=== PATIENT | female | born 1980 | race Caucasian/White ===

== ENCOUNTER 2016-06-28 06:05 | Outpatient (CLI) | payer OTHER ==
[2016-06-28] MEDS ORDERED: TERBUTALINE SULFATE 1 MG/ML VIAL SUB-Q ONE (06:19)
[2016-06-28] MEDS ORDERED: LACTATED RINGERS 1,000 ML IV SCH (06:19)
[2016-06-28] MEDS ORDERED: IV START KIT ONE (06:21)
[2016-06-28 06:47] VITALS: BMI 25.9
[2016-06-28 08:16] LABS: HEMATOCRIT 41.3 % (37.0-47.0); HEMOGLOBIN 13.9 gm/l (12.0-16.0); MEAN CELL VOLUME 92.6 fl (81.0-99.0); MEAN CORPUSCULAR HEMOGLOBIN 31.2 pg (27.0-31.0); MEAN CORPUSCULAR HGB CONC 33.7 g/dl (33.0-37.0); RED CELL DISTRIBUTION WIDTH 13.7 % (11.5-14.5)
--- NOTE | 2016-06-28 08:42 | PCMAN ---
OB Admission Note - History : 2 Term: 0 : 0 Abortions (S&E): 1 Livin Gestational Age (weeks): 39 Days (#/7): 2 Admit Cervical Dilation:: 1-2cm per Dr Hernandez Admit Station:: -3 Admit Presentaton:: Breech - RST Membrane Status: Intact Contractions: Yes Contraction Frequency:: mild, irregular Heart Rate:: 130 Status:: Good EFW:: 7lb Summary of Course:: Pt is a 36yo , sp 1st trimester miscarriage in 2013, now at 39w2d with a persistent breech presentation confirmed by US yesterday. Pt has been followed by Dr Hernandez since 9weeks, with no major concerns. - Labs Blood Type: O (+) positive Hct/Hgb:: 41.3%today Rubella Status: Immune GBS Status: Negative Abnormal Labs: None - Review of Systems Pt aware of occ contractions, mild. Baby is active with most movement high up above umbilicus. Pt denies other concerns. - Physical Exam Psych/Mental Status: Mood/Affect Appropriate, Judgment/Insight Intact Neurological: Alert, Oriented x 4, Normal Speech Lungs: Clear to Auscultation Bilaterally Cardiovascular: Regular Rate and Rhythm Skin: Normal Color, Warm - Problems (1) Malpresentation of fetus Qualifiers: malpresentation type: breech Fetus number: single or unspecified fetus Qualifier Code: (O32.1XX0) Maternal care for breech presentation, not applicable or unspecified Status: Acute Code: O32.9XX0 Assessment/Plan: Pt admitted this morning specifically for external version attempt. Risks and options reviewed. Consent signed.
--- NOTE | 2016-06-28 15:45 | CONS ---
CLINTON JONES [id number] DATE OF : 1980 REASON FOR CONSULTATION: This is Dr. Hernandez's patient and it is a consultation for breech presentation. HISTORY OF PRESENT ILLNESS: Clinton Jones is a 36-year-old G-2, P-0, 0-1-0 who has been followed since early in her by Dr. Hernandez. She has had regular visits throughout the and has shown a regular increase in the fundal height. She had a weight gain of 28 pounds during this , with no significant hypertension or proteinuria. The baby was thought to be in a cephalic presentation until the patient's visit yesterday when Dr. Hernandez identified that actually the baby is in a breech position. She was sent for an ultrasound yesterday evening and indeed the baby was breech, with the back to the maternal right. The legs were extended, with the feet up by the baby's face. The placenta was anterior. The fluid was measured at 9 cm. Options were discussed with the patient and a plan was rapidly made to bring her in this morning for evaluation for an external version. I reviewed Clinton's record and this has been an uncomplicated . The patient does have a history of a prior seven week spontaneous miscarriage in 2013, but no other pregnancies. She has no major medical problems and generally is very healthy. She is active and has been doing yoga, as well as other workouts during this . PAST MEDICAL HISTORY: See the record for the rest of the past medical history. FAMILY HISTORY: See the record for the rest of the family history. SOCIAL HISTORY: See the record for the rest of the social history. 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 She was hoping for a normal vaginal . She is in a stable mutually monogamous relationship. Her is present and supportive. PHYSICAL EXAMINATION: Exam on admission this morning again shows that the baby is in a breech presentation. Dr. Hernandez did a pelvic exam yesterday, which revealed the cervix to be 1-2 cm dilated, but still fairly thick, with the breech not well-engaged in the pelvis. Membranes were intact. No pelvic exam was repeated today. PLAN: I spent some time talking with Clinton and her about options for management. We do recommend caesarian section for a breech baby in this setting. The option of attempting an external version was explained, the risks and possible complications were discussed, the patient's questions were answered, and the patient and I signed the consent form together. The necessary preparations were made including placing an IV and drawing blood. Also, the operating room was available in case of emergency. After the patient had emptied her bladder she was given terbutaline 0.25 mg subcutaneously, and this was allowed to take effect. Indeed the uterus was palpably more relaxed several minutes after that injection. Dr. Hernandez was also present and assisted with the external version. I first did an ultrasound to thoroughly evaluate the position of this baby. She had her spine to the maternal right. The head was in the fundus. The placenta was noted to be anterior and left lateral. The baby's legs were tucked under the placenta deep in the left upper quadrant. With Dr. Hernandez's assistance, the breech was gently elevated above the pelvic brim and an attempt was then made to rotate this baby in a forward somersault (this would be a clockwise direction) with pressure on her head and the breech elevated out of the pelvis and towards the patient's right side. We were able to partially change the baby's position. Unfortunately, as soon as we let go she reverted back to her original position. The problem was that we could not get the head under the placenta on the left side. The baby seemed to be almost in a brace position. After several attempts at a forward roll, we then waited several minutes and took a break, and then tried a reverse roll; again however the baby would barely budge. We could not even get her into a transverse position. After seeing how this baby had minimal movement, it was decided not to attempt the external version any longer. During this entire procedure, we were checking the heart rate periodically, and always this baby's pulse was well over 120. No decelerations were noted. This patient was then placed on a monitor and watched for over an hour. The baby did show normal reactivity and a normal wake-sleep pattern after the external version attempt. I spoke with the patient and her about options at this point. I am concerned that she may labor with the baby in this breech position. One option would be to proceed directly with a primary caesarian section. On the other hand, I think it is also reasonable to wait several more days to see if this baby might turn on her own. Options were reviewed and in the end Clinton chose to set-up a date for an elective primary caesarian section on 07/04/2016. Between now and then she will continue to do various exercises to see if the baby will turn. If the baby is still breech on 07/04/2016, we will proceed with a primary caesarian section. The patient was also given the usual precautions. If she should show any signs of labor or rupture of membranes, she knows to come into the hospital directly. At that point we will first ascertain the position of the baby and then decide on a plan of action depending on presentation. Clinton understands and agrees with this plan.
== END 2016-06-28 09:30 | disposition home or self-care (01) ==
LOC: SUATTDRO → FBC 06:05 → FBCOUT 06:05
PROVIDERS: ATTEND Obstetrics & Gynecology
DX: O32.1XX0 Maternal care for breech presentation, not applicable or unspecified (principal); Z3A.39 39 weeks gestation of pregnancy; O09.513 Supervision of elderly primigravida, third trimester
CPT/HCPCS: 96372; 96360; 96361; 85027; 86901; 86850 ×3; 59412; 76815; 81002; J3105; J7120

== ENCOUNTER 2016-07-09 06:10 | Inpatient (IN) | payer OTHER ==
[2016-07-09] MEDS: LACTATED RINGERS 1,000 ML IV SCH ×4 (06:20→17:16)
[2016-07-09] MEDS ORDERED: CEFAZOLIN SODIUM 2 GRAM DUPLEX 2 G in Premix (D5W) 50 ml 1 EACH IV PRN (06:36)
[2016-07-09 06:48] LABS: HEMATOCRIT 45.4 % (37.0-47.0); HEMOGLOBIN 15.3 gm/l (12.0-16.0); MEAN CELL VOLUME 91.7 fl (81.0-99.0); MEAN CORPUSCULAR HEMOGLOBIN 30.9 pg (27.0-31.0); MEAN CORPUSCULAR HGB CONC 33.7 g/dl (33.0-37.0); RED CELL DISTRIBUTION WIDTH 13.3 % (11.5-14.5)
[2016-07-09 06:50] VITALS: BMI 25.8
[2016-07-09] MEDS ORDERED: CEFAZOLIN SODIUM 2 GRAM DUPLEX 50 ML IV ONE (06:56)
--- NOTE | 2016-07-09 07:19 | PCMAN ---
OB Admission Note - History : 2 Term: 0 : 0 Abortions (S&E): 1 Livin Gestational Age (weeks): 40 Days (#/7): 6 Admit Cervical Dilation:: 3.5 cm per dinking machine operator Cervical Effacement (%):: 90 Admit Station:: -2 Admit Presentaton:: Breech Membrane Status: Intact Labor Onset (Date): 07/09/16 Labor Onset (Time): 04:30 Contractions: Yes Contraction Frequency:: q 1-2 min Heart Rate:: 140 Status:: Good EFW:: 7lbs Summary of Course:: See pre-op H&P for c/s scheduled for 07/11/16. Clinton comes in this morning in active labor. C/S was recommended, risks/ benefits discussed, questions answered; pt agrees and consent was signed. Pt however is very definite that she does not want pre-op antibiotics; risks reviewed. - Labs GBS Status: Negative Other Labs:: All negative. - Review of Systems Recent gastro-enteritis. GI symptoms have resolved though pt is noted to be hemoconcentrated. - Physical Exam Psych/Mental Status: Mood/Affect Appropriate, Judgment/Insight Intact Neurological: Alert, Oriented x 4, Normal Speech (In active labor but talking during contractions.) HEENT: Atraumatic Lungs: Clear to Auscultation Bilaterally, Normal Air Movement Cardiovascular: Regular Rate and Rhythm Skin: Normal Color, Warm, Dry - Problems (1) Malpresentation of fetus Qualifiers: malpresentation type: breech Fetus number: single or unspecified fetus Qualifier Code: (O32.1XX0) Maternal care for breech presentation, not applicable or unspecified Status: Acute Code: O32.9XX0 Assessment/Plan: Breech in active labor. Pt agrees with immediate c/section.
[2016-07-09] MEDS ORDERED: SPINAL PROCEDURAL TRAY 1 EACH ONE (07:21)
[2016-07-09] MEDS ORDERED: BUPIVACAINE 0.75% SPINAL AMPUL 2 ML ONE (07:21)
[2016-07-09] MEDS ORDERED: MORPHINE SULFATE (DURAMORPH) 1 MG/ML 10ML AMP ONE (07:22)
[2016-07-09] MEDS ORDERED: NALBUPHINE HCL 20 MG/ML AMP IV PRN (08:00)
[2016-07-09] MEDS ORDERED: HYDROMORPHONE HCL 1 MG/ML SYRINGE IV PRN (08:00)
[2016-07-09] MEDS ORDERED: EPHEDRINE SULFATE 50 MG/ML 1ML VIAL IV PRN (08:00)
[2016-07-09] MEDS ORDERED: HYDROMORPHONE HCL 2 MG/ML SYRINGE IV PRN (08:00)
[2016-07-09] MEDS ORDERED: NALOXONE HCL 0.4 MG/ML VIAL IV PRN (08:00)
[2016-07-09] MEDS ORDERED: DIPHENHYDRAMINE HCL 50 MG/1 ML VIAL IV PRN ×2 (08:00→09:04)
[2016-07-09] MEDS ORDERED: ONDANSETRON 4 MG/2ML 2 ML VIAL IV PRN ×2 (08:00→09:04)
[2016-07-09] MEDS ORDERED: LANOLIN 50 APPLIC/7G TUBE TP PRN (09:04)
[2016-07-09] MEDS ORDERED: DIPHENHYDRAMINE HCL 25 MG CAPSULE PO PRN (09:04)
[2016-07-09] MEDS ORDERED: DIPHTH,PERTUSS(ACELL),TET VAC 0.5 ML VIAL IM V ONE (09:04)
[2016-07-09] MEDS ORDERED: OXYCODONE HCL 5 MG TABLET PO PRN (09:04)
[2016-07-09] MEDS: PRENATAL VIT/FE FUMARATE/FA 1 TABLET PO SCH (09:04)
[2016-07-09] MEDS: DOCUSATE SODIUM 100 MG CAPSULE PO SCH ×2 (09:04→21:37)
[2016-07-09] MEDS ORDERED: MEASLES,MUMPS&RUBELLA VACCINE 0.5 ML VIAL SUB-Q V ONE (09:04)
[2016-07-09] MEDS ORDERED: OXYCODONE/ACETAMINOPHEN 5/325 MG TABLET PO PRN (09:04)
--- NOTE | 2016-07-09 10:08 | PCMBPN ---
Brief Post Op Note: Date of Procedure: 07/09/16 Start Time: 07:46 Preoperative Diagnosis: 1. Breech in labor Postoperative Diagnosis: 1. Same Procedure: Primary c/section (low uterine segment transverse incision) Surgeon: Lisa Lagunas Assist:Mona Hernandez MD Anesthesia: spinal, Jero Sesay CRNA Findings: Baby girl RST, feet up by face, chubby, BT 07:56 9/9, [id number] Condition: Good Complications: None IV Fluids: 1800 mLs of LR Urine Output: 150 mLs Estimated Blood Loss: 500 mLs Tourniquet Time: N/A Specimens: N/A Implants: N/A Drains: N/A
[2016-07-09] MEDS ORDERED: IV START KIT ONE (11:38)
[2016-07-09] MEDS ORDERED: LACTATED RINGERS 1,000 ML ONE (11:38)
--- NOTE | 2016-07-09 12:53 | OP ---
DESIRAE JONES [id number] DATE OF : 1980 DATE OF SURGERY: 07/09/2106 PREPROCEDURE DIAGNOSIS: Primigravida breech in active labor. POSTPROCEDURE DIAGNOSIS: Primigravida breech in active labor. PROCEDURE PERFORMED: Primary section (lower uterine segment transverse incision). SURGEONS: Lisa Lagunas MD SEED POTATO CUTTER: Mona Hernandez MD ALUMINUM WELDER: Jero Sesay CRNA ANESTHESIA: Spinal anesthesia was used. ESTIMATED BLOOD LOSS: 500 mL. FINDINGS: A well-developed lower uterine segment, baby girl in a right sacrum transverse position. The time was 0756 hours. scores were 9 at 1 minute and 9 at 5 minutes. Weighed 9 pounds and 15 ounces. DESCRIPTION OF PROCEDURE: On the morning of 07/09/2016, Desirae Jones presented to the [facility] in early labor. She was having regular contractions that were getting rather uncomfortable. They were short, but frequent. There was definite cervical change, and by the time we did the surgery there was some bloody show. Her initial exam showed that she was 3-1/2 centimeters dilated. Membranes were intact. Options were discussed with the patient and her and it was recommended that we proceed with a primary section. The risks and possible complications were reviewed. Their questions were answered, the consent was then signed. The patient requested that we not give her any prophylactic antibiotics. I suggest giving them at least after the baby was born, but she did not want antibiotics in her breast milk if possible. After some discussion of risks, it was decided that we would honor her request, and the patient was not given any prophylactic antibiotics. After the rest of the usual preoperative preparations were completed in the triage room, and after the team was assembled and ready, Desirae was brought to the operating room and placed on the operating room table in a sitting position. The usual monitoring leads were placed. Spinal anesthesia was then administered without difficulty. Desirae was then placed in a supine position with a wedge under the right hip. heart tone monitoring showed a normal heart rate in the 130s. A Valadez catheter was placed while we were listening to the baby. The abdomen was then prepped and draped for a transverse suprapubic incision. After verifying an adequate level of anesthesia, the surgery was started. A transverse incision was made about the symphysis pubis with a first knife. This incision was carried down through the adipose layer with sharp and blunt dissection and using cautery for hemostasis. The fascia was incised the length of the incision. It was mobilized inferiorly and superiorly. The muscles were then in the midline. The peritoneum was opened vertically with just a small amount of free fluid in the peritoneal cavity. The lower uterine segment was well developed. The breech was deep in the pelvis. The visceral peritoneum was opened transversely and the bladder was mobilized inferiorly. A transverse incision was then made in the lower uterine segment and carried carefully down to the cavity. There was a moderate amount of yellow meconium stained amniotic fluid. The incision was extended a little bit with gentle traction in the cephalocaudad direction. The breech was found to be right sacrum transverse. It was gently cupped in my hand and delivered through the incision. Then with excellent fundal pressure by Dr. Dickens, the hips were gently brought down and delivered. Once the thighs were exposed, I did gently release the baby's legs by flexing the knees and bringing the feet out. This was not easy because of the size of this baby. Once the legs were delivered; however, the remainder of the baby delivered quickly. Both arms were released and the head came right out. This was a vigorous baby girl, who was perhaps a bit surprised initially. She did however have good tone and good cry. Mouth and nose were suctioned as we let the cord pulsate for at least a minute, then the cord was clamped and cut, and the baby was handed to the resuscitation nurse. Cord blood was obtained. The cord did show two arteries and one vein. The placenta was delivering almost spontaneously at this point. It was gently guided through the incision. All blood clots and debris were removed from the uterus. The uterus was then exteriorized and two clamps were placed on the uterine incision. This was closed with continuous interlocking suture of 0-Chromic. The second layer was use to imbricate the first layer. This gave excellent hemostasis. The uterus was inspected and show no abnormalities, normal tubes and ovaries. I did palpate the endometrial cavity in the fundus and there was no suggestion of any septum. The pelvis was irrigated posteriorly with warm saline. The pelvic inlet was thought to be normal. The uterus was then placed back within peritoneal cavity. The Jose retractor which had previously been placed was then removed. Lap sponge and instrument counts were reported as corrected. The uterine incision was again inspected, and there was no bleeding. The abdomen was then closed in layers as follows: Peritoneum and muscle were reapproximated in the midline with some 2-0 Vicryl suture. The fascia was closed with 0-Vicryl starting at the left angle. The adipose layer was irrigated and then closed with 2-0 plain suture. The skin was reapproximated with 4-0 Monocryl, and then Steri-Strips were placed. A bandage was placed. The patient was then cleaned up. Fundal massage showed that the uterus was firm and there was minimal bleeding. She was then transferred to her bed and her baby was snuggled back onto her chest. She was then taken to her recovery room in stable condition. TONIO/roger
[2016-07-09] MEDS: KETOROLAC TROMETHAMINE 30 MG/ML 1 ML VIAL IV PRN ×2 (14:51→21:37)
[2016-07-10] MEDS: KETOROLAC TROMETHAMINE 30 MG/ML 1 ML VIAL IV PRN (03:23)
[2016-07-10] MEDS: LACTATED RINGERS 1,000 ML IV SCH ×3 (06:28→17:26)
[2016-07-10 06:54] LABS: HEMATOCRIT 42.6 % (37.0-47.0); HEMOGLOBIN 13.9 gm/l (12.0-16.0); MEAN CELL VOLUME 93.6 fl (81.0-99.0); MEAN CORPUSCULAR HEMOGLOBIN 30.5 pg (27.0-31.0); MEAN CORPUSCULAR HGB CONC 32.6 g/dl (33.0-37.0); RED CELL DISTRIBUTION WIDTH 13.5 % (11.5-14.5)
--- NOTE | 2016-07-10 07:33 | PDOC44 ---
- Subjective Day: 1 Reports Flatus, Reports Pain Tolerable, Reports , Reports Lochia Light, Denies Nausea, Denies Vomiting, Denies Fever - Objective Temp Pulse Resp BP Pulse Ox 98.4 F 71 18 105/55 98 07/10/16 02:30 07/10/16 02:30 07/10/16 02:30 07/10/16 02:30 07/09/16 12:58 Lab Results 07/10/16 06:30 WBC 16.8 H RBC 4.55 Hgb 13.9 Hct 42.6 Plt Count 210 07/10/16 06:30 MCHC 32.6 L Current Medications Generic Name Dose Route Start Last Admin Trade Name Freq PRN Reason Stop Dose Admin Diphenhydramine HCl 25 - 50 mg 07/09/16 09:04 Benadryl PO Q6H PRN Itching (Mild/Moderate) Diphenhydramine HCl 25 - 50 mg 07/09/16 09:04 Benadryl IV Q6H PRN Itching (Severe) Diphenhydramine HCl 25 - 50 mg 07/09/16 08:00 Benadryl IV 07/10/16 08:00 Q4H PRN Itching Docusate Sodium 100 mg 07/09/16 09:04 07/09/16 21:37 Colace PO 100 mg BID BENNETT Administration Emollient Ointment 1 applic 07/09/16 09:04 Aos-H-[id number] TP PRN PRN sore nipples Ephedrine Sulfate 5 - 10 mg 07/09/16 08:00 Ephedrine Sulfate IV 07/10/16 08:00 Q5M PRN Hydromorphone HCl 0.5 - 2 mg 07/09/16 08:00 Dilaudid IV 07/10/16 08:00 Q1H PRN Pain (Breakthrough) Hydromorphone HCl 0.5 - 2 mg 07/09/16 08:00 Dilaudid IV 07/10/16 08:00 Q1H PRN Pain Lactated Ringer's 1,000 mls @ 125 mls/hr 07/09/16 09:04 07/10/16 06:28 Lactated Ringers IV Not Given .Q8H BENNETT Ibuprofen 800 mg 07/09/16 09:04 Motrin PO Q6H PRN Pain Ketorolac Tromethamine 30 mg 07/09/16 09:04 07/10/16 03:23 Toradol IV 30 mg Q6H PRN Administration Pain (Mild/Moderate) Multivi/Iron Carb/Fe Sulf/FA/Prenat 1 tab 07/09/16 09:04 07/09/16 09:04 Plus PO Not Given DAILY BENNETT Nalbuphine HCl 1 - 5 mg 07/09/16 08:00 Nubain IV 07/10/16 08:00 Q4H PRN Itching Naloxone HCl 0.2 - 0.4 mg 07/09/16 08:00 Narcan IV 07/10/16 08:00 Q5M PRN Ondansetron HCl 4 mg 07/09/16 09:04 Zofran IV Q6H PRN Nausea/Vomiting Ondansetron HCl 4 mg 07/09/16 08:00 Zofran IV 07/10/16 08:00 Q6H PRN Nausea/Vomiting Oxycodone HCl 5 - 10 mg 07/09/16 09:04 Roxicodone PO Q3H PRN Pain (Severe) Oxycodone/Acetaminophen 1 - 2 tab 07/09/16 09:04 Percocet 5/325 PO Q4H PRN Pain (Moderate) Sodium Chloride 10 ml 07/09/16 09:04 07/10/16 03:23 Normal Saline 10ml Flush IV 20 ml PRN PRN Administration IV Flush Sodium Chloride 10 ml 07/09/16 17:00 07/10/16 06:28 Normal Saline 10ml Flush IV Not Given Q8HR [facility] - Physical Exam General: Afebrile, No Acute Distress Fundus: Firm, At Umbilicus Abdomen: Normal Bowel Sounds, No Tenderness, No Distention Wound CHIEF RISK OFFICER: Dressing in Place, Dressing Clean/Dry/Intact Disposition: Stable (stable; regular postoperative care.)
[2016-07-10] MEDS: PRENATAL VIT/FE FUMARATE/FA 1 TABLET PO SCH (09:33)
[2016-07-10] MEDS: DOCUSATE SODIUM 100 MG CAPSULE PO SCH ×2 (09:37→22:26)
[2016-07-10] MEDS: IBUPROFEN 800 MG TABLET PO PRN ×3 (09:38→22:25)
[2016-07-11] MEDS: IBUPROFEN 800 MG TABLET PO PRN ×2 (05:00→11:05)
[2016-07-11] MEDS: LACTATED RINGERS 1,000 ML IV SCH ×2 (05:55→10:57)
[2016-07-11 08:29] VITALS: BP 120/59
--- NOTE | 2016-07-11 08:48 | PDOC39B ---
Hospital Course: ADMIT DATE: 07/09/16 DISCHARGE DATE: 07/11/16 ADMISSION DIAGNOSES: post dates , breech in labor PROCEDURES: Primary section (lower uterine segment transverse incision) HISTORY OF PRESENT ILLNESS: 36 year old G2 T0 L0 at 40 weeks 6 days presenting with labor. HOSPITAL COURSE: The patient was prepared for c/section. This was accomplished without delay resulting in the of Belkis Ya, 9lb 14, breech. Mother and baby have done well in period. By day of discharge the patient is ambulating, eating, voiding, and passing flatus without difficulty. Pain is controlled and lochia is appropriate. She is . - Physical Exam Vital Signs: Temp Pulse Resp BP Pulse Ox 97.8 F 70 16 120/59 98 07/11/16 08:27 07/11/16 08:27 07/11/16 08:27 07/11/16 08:27 07/09/16 12:58 General: Afebrile Psych/Mental Status: Mood/Affect Appropriate, Bonding Well Neurological: Oriented x 4, Normal Speech Lungs: Normal Air Movement Cardiovascular: Regular Rate and Rhythm Fundus: Firm, Below Umbilicus Abdomen: Normal Bowel Sounds Lochia: Light Skin: Normal Color, Warm Wound: Well Approximated - Discharge Diagnosis (1) Malpresentation of fetus Qualifiers: malpresentation type: breech Fetus number: single or unspecified fetus Qualifier Code: (O32.1XX0) Maternal care for breech presentation, not applicable or unspecified Status: Acute Assessment/Plan: Breech in active labor. Pt agrees with immediate c/section. Pt was delivered by primary section without complication. - Discharge Plan Condition: Good Disposition: Home Prescriptions: Ibuprofen [IBUPROFEN 800 MG TABLET (SHF)] 800 mg PO Q6H PRN #100 tablet PRN Reason: Pain Follow-Up: Mona Hernandez MD [Primary Care Provider] - 08/18/16 9:00 am (6 week check up ) Lisa Lagunas MD [Staff Physician] - In 7-10 days
[2016-07-11] MEDS: PRENATAL VIT/FE FUMARATE/FA 1 TABLET PO SCH (10:56)
[2016-07-11] MEDS: DOCUSATE SODIUM 100 MG CAPSULE PO SCH (10:56)
== END 2016-07-11 12:08 | disposition home or self-care (01) | DRG 766 ==
LOC: FBCOUT 06:10 → FBC 06:10 → FBCOUT 06:35
PROVIDERS: ADMIT Obstetrics & Gynecology; ATTEND Obstetrics & Gynecology
PROC: 10D00Z1 Extraction of Products of Conception, Low, Open Approach (ICD-10-PCS; principal; 2016-07-09)
DX: O32.1XX0 Maternal care for breech presentation, not applicable or unspecified (principal); O75.89 Other specified complications of labor and delivery; N64.59 Other signs and symptoms in breast; Z3A.40 40 weeks gestation of pregnancy; Z37.0 Single live birth

== ENCOUNTER 2016-07-14 13:04 | Outpatient (CLI) | payer OTHER | END 2016-07-14 13:05 | disposition home or self-care (01) | LOC: BABIESSH 13:04 | PROVIDERS: ATTEND Obstetrics & Gynecology | DX: Z39.1 Encounter for care and examination of lactating mother (principal) ==

== ENCOUNTER 2016-07-17 14:56 | Outpatient (CLI) | payer OTHER | END 2016-07-17 14:57 | disposition home or self-care (01) | LOC: BABIESSH 14:56 | PROVIDERS: ATTEND Obstetrics & Gynecology | DX: Z39.1 Encounter for care and examination of lactating mother (principal) ==

== ENCOUNTER 2016-07-20 10:53 | Outpatient (CLI) | payer OTHER | END 2016-07-20 10:54 | disposition home or self-care (01) | LOC: BABIESSH 10:53 | PROVIDERS: ATTEND Obstetrics & Gynecology | DX: Z39.1 Encounter for care and examination of lactating mother (principal) ==

== ENCOUNTER 2016-07-28 11:00 | Outpatient (CLI) | payer OTHER | END 2016-07-28 11:01 | disposition home or self-care (01) | LOC: BABIESSH 11:00 | PROVIDERS: ATTEND Family Medicine | DX: Z39.1 Encounter for care and examination of lactating mother (principal) ==